=== PATIENT | male | born 1960 | race Caucasian/White ===

== ENCOUNTER 2022-06-08 13:11 | Emergency (ER) | payer OTHER ==
[~2022-06-08] VITALS: Ht 177.8 cm; Wt 86.4 kg
[~2022-06-08 13:11] MED LIST: AMOX-117; CLIN150C2 PO; LISI40TA13 PO
[2022-06-08 13:31] VITALS: BP 175/91
[2022-06-08] MEDS ORDERED: fluconazole 100mg tablet PO ONE (15:40)
[2022-06-08] MEDS ORDERED: CEPH-585 PO ×2 (15:45→16:40)
[2022-06-08] MEDS ORDERED: TOLN28CR7 TOP (15:45)
== END 2022-06-08 16:05 | disposition home or self-care (01) ==
LOC: ER 13:11
DX: B35.2 Tinea manuum (principal); L30.2 Cutaneous autosensitization; E78.00 Pure hypercholesterolemia, unspecified; I10 Essential (primary) hypertension; J45.909 Unspecified asthma, uncomplicated; Z88.5 Allergy status to narcotic agent; Z79.899 Other long term (current) drug therapy
CPT/HCPCS: 99283